=== PATIENT | female | born 1935 | race Caucasian/White ===

== ENCOUNTER 2018-01-13 17:53 | Emergency (ER) | payer OTHER ==
[~2018-01-13] VITALS: Ht 165.1 cm; Wt 77.1 kg
[~2018-01-13 17:53] MED LIST: ATOR10; ATOR10 PO; CALCIUM 600 +1 EAC9 PO; DIGO.125 PO; DONE10 PO; DULO60; DULO60 PO; ECHINACEA PO; ERGO400 PO; FISH1000 PO; FLUO10 PO; FOLI1 PO; Fish Oil500 M1 PO; Flomax0.4 MG PO; Fluoxetine HCl10 MG PO; MELA3 PO; MEMA10 PO; Macrodantin100 MG PO; Motion Sickness25 M1 PO; NEBI10; NEBI10 PO; NITR.4SL SL; NITR.4TPA TOP; Nitroglycerin0.4 MG SL; Percocet 5-3251 EACH PO; Super B-50 Com1 EACH PO; WARF2 PO; WARF4; WARF4 PO; XARELTO20 MG PO; Zofran Odt8 MG SL
[2018-01-13] MEDS ORDERED: DULO60 (18:23)
[2018-01-13] MEDS ORDERED: LEVO750 PO (20:31)
== END 2018-01-13 20:38 | disposition home or self-care (01) ==
LOC: ER 17:53
DX: J18.9 Pneumonia, unspecified organism (principal); I10 Essential (primary) hypertension; I48.91 Unspecified atrial fibrillation; G47.33 Obstructive sleep apnea (adult) (pediatric); I25.10 Atherosclerotic heart disease of native coronary artery without angina pectoris; G30.9 Alzheimer's disease, unspecified; F02.80 Dementia in other diseases classified elsewhere, unspecified severity, without behavioral disturbance, psychotic disturbance, mood disturbance, and anxiety; Z88.5 Allergy status to narcotic agent; Z88.8 Allergy status to other drugs, medicaments and biological substances; Z79.899 Other long term (current) drug therapy; Z98.890 Other specified postprocedural states; Z95.0 Presence of cardiac pacemaker; Z95.1 Presence of aortocoronary bypass graft; Z87.891 Personal history of nicotine dependence
CPT/HCPCS: 71046; 99283

== ENCOUNTER 2018-01-19 16:02 | Emergency (ER) | payer OTHER ==
[~2018-01-19] VITALS: Ht 165.1 cm; Wt 68.0 kg
[~2018-01-19 16:02] MED LIST changes: +LEVO750 PO
[2018-01-19] MEDS ORDERED: ALBU90OI INH (17:21)
[2018-01-19] MEDS ORDERED: Prednisone20 MG PO (17:21)
[2018-01-19] MEDS ORDERED: BENZ100A PO (17:21)
== END 2018-01-19 18:23 | disposition home or self-care (01) ==
LOC: ER 16:02
DX: J18.9 Pneumonia, unspecified organism (principal); Z88.5 Allergy status to narcotic agent; Z88.8 Allergy status to other drugs, medicaments and biological substances; Z79.899 Other long term (current) drug therapy; Z79.52 Long term (current) use of systemic steroids; Z79.2 Long term (current) use of antibiotics; I48.91 Unspecified atrial fibrillation; G30.9 Alzheimer's disease, unspecified; Z87.891 Personal history of nicotine dependence
CPT/HCPCS: 71046; 94640; 99284

== ENCOUNTER → 2020-07-09 | Outpatient (CLI) | payer OTHER ==
[~2020-07-09] MED LIST changes: +ALBU90OI INH; +BENZ100A PO; +Prednisone20 MG PO
== END | disposition home or self-care (01) ==
LOC: PLD 08:52 → LAB SHORT 08:52
DX: L57.0 Actinic keratosis (principal)
CPT/HCPCS: 88305

== ENCOUNTER 2021-09-22 10:57 | Emergency (ER) | payer OTHER ==
[~2021-09-22] VITALS: Ht 157.5 cm; Wt 72.0 kg
[~2021-09-22 10:57] MED LIST changes: +ANTACID PO; +LOPE2C PO; +MASOPHEN325 M1 PO; +METO25ER PO
[2021-09-22 11:54] LABS: BASOPHILS ABSOLUTE AUTO 0.06 K/mm3 (0.00-0.23); BASOPHILS PERCENT AUTO 0 % (0-2); EOSINOPHILS PERCENT AUTO 1 % (0-6); Hematocrit 29.3 % (33.0-51.0); Hemoglobin 8.3 g/dL (11.5-16.0); IMMATURE GRAN ABSOLUTE AUTO 0.08 K/mm3 (0.00-0.10); IMMATURE GRAN PERCENT AUTO 1 % (0-1); LYMPHOCYTES ABSOLUTE AUTO 2.47 K/mm3 (0.84-5.20); LYMPHOCYTES PERCENT AUTO 17 % (21-46); MONOCYTES ABSOLUTE AUTO 1.37 K/mm3 (0.16-1.47); MONOCYTES PERCENT AUTO 10 % (4-13); Mean Corpuscular HGB Conc 28.3 g/dL (31.5-36.5); Mean Corpuscular Volume 70 fL (80-100); Mean Platelet Volume 9.3 fL (9.1-12.4); NEUTROPHILS ABSOLUTE AUTO 10.31 K/mm3 (1.96-9.15); NEUTROPHILS PERCENT AUTO 71 % (41-73); Platelet Count 454 K/mm3 (150-400); RDW Coefficient Variation 19.5 % (11.7-14.2); RDW Standard Deviation 48.9 fL (35.1-46.3); Red Blood Cell Count 4.16 M/mm3 (3.80-5.20); White Blood Cell Count 14.49 K/mm3 (4.00-11.30)
[2021-09-22 12:29] LABS: Alanine Aminotransfer (ALT/SGP 14 U/L (12-78); Albumin/Globulin Ratio 0.6 (0.8-1.8); Alk Phos 90 U/L (50-136); Anion Gap 11 mmol/L (6-16); Aspartate Aminotrans (AST/SGOT 17 U/L (12-37); Bilirubin, Total 0.4 mg/dL (0.1-1.0); Blood Urea Nitrogen 18 mg/dL (8-24); Bun/Creatinine Ratio 20.5 (12.0-20.0); CO2, Blood 20 mmol/L (21-32); Calcium, Blood 9.2 mg/dL (8.5-10.1); Chloride, Blood 106 mmol/L (98-108); Creatinine, Blood 0.88 mg/dL (0.40-1.00); Globulin, Blood 5.2 g/dL (2.2-4.0); Glomerular Filtration Rate >60 (60-); Glucose, Blood 186 mg/dL (70-99); Potassium, Blood 3.5 mmol/L (3.5-5.5); Sodium, Blood 137 mmol/L (136-145); Total Protein, Blood 8.2 g/dL (6.4-8.2); Troponin I <0.015 ng/mL (0.000-0.040)
[2021-09-22 13:00] LABS: Adenovirus Not Detected (NOT DETECT); Bordetella pertussis Not Detected (NOT DETECT); Chlamydophila pneumoniae Not Detected (NOT DETECT); Coronavirus 229E Not Detected (NOT DETECT); Coronavirus HKU1 Not Detected (NOT DETECT); Coronavirus NL63 Not Detected (NOT DETECT); Coronavirus OC43 Not Detected (NOT DETECT); Human Metapneumovirus Not Detected (NOT DETECT); Human Rhinovirus/Enterovirus Detected (NOT DETECT); Influenza A/2009-H1 Not Detected (NOT DETECT); Influenza A/H1 Not Detected (NOT DETECT); Influenza A/H3 Not Detected (NOT DETECT); Influenza B Not Detected (NOT DETECT); Mycoplasma pneumoniae Not Detected (NOT DETECT); Parainfluenza Virus 1 Not Detected (NOT DETECT); Parainfluenza Virus 2 Not Detected (NOT DETECT); Parainfluenza Virus 3 Not Detected (NOT DETECT); Parainfluenza Virus 4 Not Detected (NOT DETECT); Respiratory Syncytial Virus Not Detected (NOT DETECT); SARS-Cov-2 (COVID-19), BioFire Not Detected (NOT DETECT)
[2021-09-22] MEDS ORDERED: PRED20 PO (14:45)
[2021-09-22] MEDS ORDERED: ALBU90OI INH (14:45)
[2021-09-22] MEDS ORDERED: DOXY100 PO (14:45)
== END 2021-09-22 15:18 | disposition home or self-care (01) ==
LOC: ER 10:57
PROVIDERS: Physician Assistant
DX: J44.1 Chronic obstructive pulmonary disease with (acute) exacerbation (principal); Z20.822 Contact with and (suspected) exposure to COVID-19; I10 Essential (primary) hypertension; I48.91 Unspecified atrial fibrillation; E78.5 Hyperlipidemia, unspecified; G47.33 Obstructive sleep apnea (adult) (pediatric); I25.10 Atherosclerotic heart disease of native coronary artery without angina pectoris; Z87.891 Personal history of nicotine dependence; Z88.5 Allergy status to narcotic agent; Z88.8 Allergy status to other drugs, medicaments and biological substances; Z79.899 Other long term (current) drug therapy
CPT/HCPCS: 0202U; 36415; 71045; 80053; 84484; 85025; 93005; 93010; 94640; 94644; 99285-25; A9270; J7512

== ENCOUNTER 2021-09-27 21:26 | Emergency (ER) | payer OTHER ==
[~2021-09-27] VITALS: Ht 165.1 cm; Wt 102.1 kg
[~2021-09-27 21:26] MED LIST changes: +DOXY100 PO; +PRED20 PO
== END 2021-09-28 01:31 | disposition home or self-care (01) ==
LOC: ER 21:26
DX: J20.6 Acute bronchitis due to rhinovirus (principal); I10 Essential (primary) hypertension; I25.10 Atherosclerotic heart disease of native coronary artery without angina pectoris; I48.91 Unspecified atrial fibrillation; E78.5 Hyperlipidemia, unspecified; J44.9 Chronic obstructive pulmonary disease, unspecified; G47.33 Obstructive sleep apnea (adult) (pediatric); Z88.5 Allergy status to narcotic agent; Z88.8 Allergy status to other drugs, medicaments and biological substances; Z79.899 Other long term (current) drug therapy; Z79.01 Long term (current) use of anticoagulants; Z87.891 Personal history of nicotine dependence
CPT/HCPCS: 71046; 94644; 99284-25

== ENCOUNTER → 2021-10-12 | Outpatient (CLI) | payer OTHER ==
[2021-10-13 10:54] LABS: Source, Urine Clean Catch
[2021-10-13 12:11] LABS: Bilirubin, Urine Neg (Neg); Blood, Urine 2+ (Neg); Color, Urine Yellow (P-Yellow); Glucose Qualitative, Urine Neg (Neg); Ketones, Urine Neg (Neg); Leukocyte Esterase, Urine 3+ (Neg); Nitrite, Urine Pos (Neg); Protein, Urine 2+ (Neg); Urobilinogen, Urine NORM (Normal)
[2021-10-13 12:40] LABS: Appearance, Urine Hazy (Clear)
[2021-10-13 12:41] LABS: White Blood Cells, Urine 25-50 /hpf (0-5)
[2021-10-13 12:42] LABS: Amorphous Light (0-Heavy); Bacteria Many /hpf; Mucus Light (0-Heavy); Squamous Epithelial Cells Few /hpf (Few)
== END | disposition home or self-care (01) ==
LOC: LAB SHORT 17:30
PROVIDERS: Internal Medicine
DX: N39.0 Urinary tract infection, site not specified (principal)
CPT/HCPCS: 81001

== ENCOUNTER → 2021-10-16 | Outpatient (CLI) | payer OTHER ==
[2021-10-16 18:30] LABS: BASOPHILS ABSOLUTE AUTO 0.05 K/mm3 (0.00-0.23); BASOPHILS PERCENT AUTO 0 % (0-2); EOSINOPHILS PERCENT AUTO 1 % (0-6); Hematocrit 27.6 % (33.0-51.0); IMMATURE GRAN ABSOLUTE AUTO 0.69 K/mm3 (0.00-0.10); IMMATURE GRAN PERCENT AUTO 5 % (0-1); LYMPHOCYTES ABSOLUTE AUTO 4.26 K/mm3 (0.84-5.20); LYMPHOCYTES PERCENT AUTO 28 % (21-46); MONOCYTES ABSOLUTE AUTO 1.14 K/mm3 (0.16-1.47); MONOCYTES PERCENT AUTO 8 % (4-13); Mean Corpuscular HGB 20.2 pg (26.0-34.0); Mean Corpuscular Volume 70 fL (80-100); NEUTROPHILS ABSOLUTE AUTO 8.91 K/mm3 (1.96-9.15); NEUTROPHILS PERCENT AUTO 59 % (41-73); NRBC ABSOLUTE 0.02 K/mm3 (0.00-0.02); NRBC Auto 0.1 /100 WBC (0.0-0.2); Platelet Count 631 K/mm3 (150-400); RDW Coefficient Variation 21.2 % (11.7-14.2); Red Blood Cell Count 3.96 M/mm3 (3.80-5.20); White Blood Cell Count 15.15 K/mm3 (4.00-11.30)
[2021-10-16 18:50] LABS: Anion Gap 12 mmol/L (6-16); Blood Urea Nitrogen 13 mg/dL (8-24); Bun/Creatinine Ratio 9.4 (12.0-20.0); CO2, Blood 29 mmol/L (21-32); Calcium, Blood 8.6 mg/dL (8.5-10.1); Chloride, Blood 100 mmol/L (98-108); Creatinine, Blood 1.39 mg/dL (0.40-1.00); Glomerular Filtration Rate 36 (60-); Glucose, Blood 98 mg/dL (70-99); Potassium, Blood 3.1 mmol/L (3.5-5.5); Sodium, Blood 141 mmol/L (136-145)
[2021-10-16 18:51] LABS: Troponin I <0.017 ng/mL (0.000-0.040)
== END | disposition home or self-care (01) ==
LOC: LAB SHORT 18:26
PROVIDERS: Physician Assistant Surgical
DX: R55 Syncope and collapse (principal)
CPT/HCPCS: 80048; 84484; 85025; 85379

== ENCOUNTER 2022-06-28 14:17 | Inpatient (IN) | payer OTHER ==
[~2022-06-28] VITALS: Ht 165.1 cm; Wt 91.0 kg
[2022-06-28] MEDS ORDERED: FERSU300 (14:55)
[2022-06-28] MEDS ORDERED: GUAI200 (14:56)
[2022-06-28] MEDS ORDERED: MIRALAX17 GM (14:56)
[2022-06-28] MEDS ORDERED: ZINC OXIDE57 GM TOP (14:57)
[2022-06-28] MEDS ORDERED: QUET25 (14:57)
[2022-06-28] MEDS ORDERED: SENNA LAXATIVE8.6 MG (14:58)
[2022-06-28] MEDS ORDERED: VITAMIN D3-ALO1 EACH (14:58)
[2022-06-28] MEDS ORDERED: Vitamin C100 M1 (14:58)
[2022-06-28 15:46] LABS: Albumin, Blood 3.5 g/dL (3.4-5.0); Albumin/Globulin Ratio 0.8 (0.8-1.8); Bun/Creatinine Ratio 12.9 (12.0-20.0); Calcium, Blood 9.7 mg/dL (8.5-10.1); Creatinine, Blood 2.48 mg/dL (0.40-1.00); Globulin, Blood 4.6 g/dL (2.2-4.0); Total Protein, Blood 8.1 g/dL (6.4-8.2)
[2022-06-28 15:54] LABS: BASOPHILS ABSOLUTE AUTO 0.03 K/mm3 (0.00-0.23); BASOPHILS PERCENT AUTO 0 % (0-2); EOSINOPHILS PERCENT AUTO 0 % (0-6); Hematocrit 39.4 % (33.0-51.0); Hemoglobin 12.7 g/dL (11.5-16.0); IMMATURE GRAN ABSOLUTE AUTO 0.05 K/mm3 (0.00-0.10); IMMATURE GRAN PERCENT AUTO 0 % (0-1); LYMPHOCYTES ABSOLUTE AUTO 2.03 K/mm3 (0.84-5.20); LYMPHOCYTES PERCENT AUTO 14 % (21-46); MONOCYTES ABSOLUTE AUTO 1.32 K/mm3 (0.16-1.47); MONOCYTES PERCENT AUTO 9 % (4-13); Mean Corpuscular HGB 28.3 pg (26.0-34.0); Mean Corpuscular HGB Conc 32.2 g/dL (31.5-36.5); Mean Corpuscular Volume 88 fL (80-100); Mean Platelet Volume 9.9 fL (9.1-12.4); NEUTROPHILS ABSOLUTE AUTO 11.01 K/mm3 (1.96-9.15); NEUTROPHILS PERCENT AUTO 76 % (41-73); Platelet Count 277 K/mm3 (150-400); RDW Coefficient Variation 12.7 % (11.7-14.2); RDW Standard Deviation 40.7 fL (35.1-46.3); Red Blood Cell Count 4.48 M/mm3 (3.80-5.20); White Blood Cell Count 14.44 K/mm3 (4.00-11.30)
[2022-06-28 16:42] LABS: Influenza A, PCR NEGATIVE (NEGATIVE); Influenza B, PCR NEGATIVE (NEGATIVE); Resp Syncytial Virus, PCR NEGATIVE (NEGATIVE); SARS-Cov-2 (COVID-19) PCR, MMC NEGATIVE (NEGATIVE)
[2022-06-28 16:54] LABS: Source, Urine Straight Cath
[2022-06-28 17:04] LABS: Appearance, Urine Cloudy (Clear); Bilirubin, Urine Neg (Neg); Blood, Urine 3+ (Neg); Color, Urine Yellow (P-Yellow); Glucose Qualitative, Urine 1+ (Neg); Ketones, Urine 2+ (Neg); Leukocyte Esterase, Urine 3+ (Neg); Nitrite, Urine Neg (Neg); Protein, Urine 4+ (Neg); Specific Gravity, Urine 1.015 (1.003-1.022); Urobilinogen, Urine NORM (Normal); pH, Urine 6.5 (5.0-8.0)
[2022-06-28 17:10] LABS: Bacteria Many /hpf; Red Blood Cells, Urine 25-50 /hpf (0-2); Squamous Epithelial Cells Few /hpf (Few); White Blood Cells, Urine TNTC /hpf (0-5)
--- NOTE | 2022-06-28 21:54 | NUR ---
transfer report from [facility] GENETIC COORDINATOR on elderly PT with dementia hypertension CAD with pacemaker hx of UTI UA positive culture pending hx of ecoli strep b uti. Await admission
[2022-06-29 05:22] LABS: BASOPHILS ABSOLUTE AUTO 0.03 K/mm3 (0.00-0.23); BASOPHILS PERCENT AUTO 0 % (0-2); EOSINOPHILS ABSOLUTE AUTO 0.01 K/mm3 (0.00-0.68); EOSINOPHILS PERCENT AUTO 0 % (0-6); Hematocrit 38.7 % (33.0-51.0); Hemoglobin 12.4 g/dL (11.5-16.0); IMMATURE GRAN ABSOLUTE AUTO 0.05 K/mm3 (0.00-0.10); IMMATURE GRAN PERCENT AUTO 0 % (0-1); LYMPHOCYTES ABSOLUTE AUTO 2.38 K/mm3 (0.84-5.20); LYMPHOCYTES PERCENT AUTO 16 % (21-46); MONOCYTES PERCENT AUTO 12 % (4-13); Mean Corpuscular HGB 28.4 pg (26.0-34.0); Mean Corpuscular Volume 89 fL (80-100); Mean Platelet Volume 10.4 fL (9.1-12.4); NEUTROPHILS ABSOLUTE AUTO 10.45 K/mm3 (1.96-9.15); NEUTROPHILS PERCENT AUTO 72 % (41-73); Platelet Count 260 K/mm3 (150-400); RDW Coefficient Variation 12.8 % (11.7-14.2); Red Blood Cell Count 4.37 M/mm3 (3.80-5.20); White Blood Cell Count 14.62 K/mm3 (4.00-11.30)
[2022-06-29 05:46] LABS: Albumin, Blood 3.2 g/dL (3.4-5.0); Albumin/Globulin Ratio 0.7 (0.8-1.8); Bilirubin, Total 0.7 mg/dL (0.1-1.0); Bun/Creatinine Ratio 14.1 (12.0-20.0); Creatinine, Blood 2.27 mg/dL (0.40-1.00); Globulin, Blood 4.4 g/dL (2.2-4.0); Magnesium, Blood 2.1 mg/dL (1.6-2.4); Total Protein, Blood 7.6 g/dL (6.4-8.2)
--- NOTE | 2022-06-29 06:52 | NUR ---
Elderly Female with UTI admitted with DOROTHY dehydration &sheisincontient of large amts of urine. Sips water with hs meds bites applesauce. NS IVF x 1 l. Rocephin to tx UTI. PRN trandate for hypertension with helpful effect but PTb continues with elevated SBP. [facility]. REfused some lab wotk this AM. 1 BC OBTAINED.
--- NOTE | 2022-06-29 17:27 | NUR ---
PT AOX1 WITH CONFUSION DUE TO DEMENTIA. PT HAS BEEN COOPERATIVE OF ALL CARE. PT PLEASANT AND DENIES ANY PAIN AT THIS TIME. PT RESTING IN BED WITH BED ALARM ON. PT HAS HAD A HIGH BP STARTING WITH 181/119 THEN AM MEDS GIVEN. NEXT BP WAS 163/104 AND IV METOPROLOL WAS GIVEN PER EMAR. AT 1607 BP WAS 152/101. WILL CONTINUE TO MONITOR.
--- NOTE | 2022-06-30 05:37 | NUR ---
PT who was admitted with DOROTHY UTI HTN Afib Dementia is more alet pleasant & she continues to require prn rx to tx hypertension with diastolic BPs greater than 100 SBP into 170s. Mild helpful effect of IV trandate 10 mg effect lasting less than 4 hrs. PT has advanced dementia DTR is POA & PT is full code will make pallative care consult to verify PT family would want full code status. Day RN Yady expressed concern DTR not visiting because PT does not recognize her? Voids only 1 x this shift despite IVF NS at 125 ml hr ongoing .
[2022-06-30 07:46] LABS: BASOPHILS ABSOLUTE AUTO 0.03 K/mm3 (0.00-0.23); BASOPHILS PERCENT AUTO 0 % (0-2); EOSINOPHILS ABSOLUTE AUTO 0.01 K/mm3 (0.00-0.68); EOSINOPHILS PERCENT AUTO 0 % (0-6); Hemoglobin 11.6 g/dL (11.5-16.0); IMMATURE GRAN ABSOLUTE AUTO 0.07 K/mm3 (0.00-0.10); IMMATURE GRAN PERCENT AUTO 1 % (0-1); LYMPHOCYTES ABSOLUTE AUTO 1.49 K/mm3 (0.84-5.20); LYMPHOCYTES PERCENT AUTO 12 % (21-46); MONOCYTES ABSOLUTE AUTO 1.57 K/mm3 (0.16-1.47); MONOCYTES PERCENT AUTO 13 % (4-13); Mean Corpuscular HGB 28.5 pg (26.0-34.0); Mean Corpuscular HGB Conc 32.2 g/dL (31.5-36.5); Mean Corpuscular Volume 89 fL (80-100); Mean Platelet Volume 10.4 fL (9.1-12.4); NEUTROPHILS ABSOLUTE AUTO 8.92 K/mm3 (1.96-9.15); NEUTROPHILS PERCENT AUTO 74 % (41-73); Platelet Count 215 K/mm3 (150-400); RDW Coefficient Variation 12.8 % (11.7-14.2); RDW Standard Deviation 41.2 fL (35.1-46.3); Red Blood Cell Count 4.07 M/mm3 (3.80-5.20); White Blood Cell Count 12.09 K/mm3 (4.00-11.30)
[2022-06-30 07:56] LABS: Bun/Creatinine Ratio 15.1 (12.0-20.0); Calcium, Blood 8.5 mg/dL (8.5-10.1); Creatinine, Blood 2.45 mg/dL (0.40-1.00); Potassium, Blood 3.8 mmol/L (3.5-5.5)
--- NOTE | 2022-06-30 10:26 | NUR ---
NOTIFIED DR. BYRD BY PHONE THAT PT'S B/P IS STILL ELEVATED AT 155/110 AND THAT PT HAS BEEN HAVING PVC'S PER HOSPITAL RECEPTIONISTCONSTANTINE.
--- NOTE | 2022-06-30 13:46 | NUR ---
Pt resting in bed and is pleasantly confused. Pt is A&O to self only. Pt answers in only one to two word sentences. Pt denies pain and dyspnea at this time. No S/S of distress at this time. Called and spoke with Pt's daughter Anaya. Provided update and reviewed plan of care. Engaged in therapeutic discussion regarding Pt's wishes for code status. Daughter Anaya reports Pt's wishes are DNR. Anaya is agreeable to complete POLST over the phone. Discussed each section to be completed and educated on each option. POLST completed with PC RN Madhuri as witness via speaker phone. Spoke with Dr Dickey. Dr Dickey signs POLST. [facility] per V/O from Dr Dickey. Delivered copy of POLST to medical records. Original POLST hanging on Pt's whiteboard to return back to facility when Pt is D/C from hospital. Palliative Care will remain available.
--- NOTE | 2022-06-30 18:00 | NUR ---
SHIFT SUMMARY PT IS PLEASANTLY CONFUSED. PT UNABLE TO RECALL HER NAME OR BIRTHDATE. PT'S DAUGHTER STATES THIS IS BASELINE. PT'S BLOOD PRESSURE HAS REMAINED HIGH ALL DAY DESPITE MEDICATION INTERVENTIONS. DR BYRD CONSULTED ABOUT ELEVATED B/P. NOTICED PT'S BROW FURROWED AND TOUCHING FORHEAD. PT DENIED PAIN, HOWEVER, WHEN COOL WASH CLOTH WAS PLACE ON PT HEAD, PT STATED, "AWW THAT FEEELS NICE". PT GIVEN TYLENOL AND HER BROW IS NO LONGER FURROWED. PT INONTINENT. ABLE TO TAKE MEDS WHOLE WITH WATER. BED IN LOWEST POSITION AND CALL LIGHT IN REACH.
[2022-06-30 19:29] LABS: Bun/Creatinine Ratio 15.4 (12.0-20.0); Calcium, Blood 8.9 mg/dL (8.5-10.1); Creatinine, Blood 2.54 mg/dL (0.40-1.00); Potassium, Blood 4.1 mmol/L (3.5-5.5)
--- NOTE | 2022-07-01 00:29 | NUR ---
PATIENT HAS PLEASANT AFFECT. LAUGHING AND GIGGLING WHEN THIS RN ASKS QUESTIONS. NEW IV PLACED IN LEFT WRIST 20GAUGE. PATIENT TOLERATED WELL. IV FLUIDS INFUSING AT 125ML/HR NS. SHE TAKES HER MEDICATIONS WHOLE WITH WATER. PATIENT NEEDS ENCOURAGEMENT WHEN SHE IS EATING SHE EASILY GETS SIDE TRACKED. WILL REMAIN AVAILABLE FOR THIS PATIENT
[2022-07-01 06:41] LABS: BASOPHILS ABSOLUTE AUTO 0.02 K/mm3 (0.00-0.23); BASOPHILS PERCENT AUTO 0 % (0-2); EOSINOPHILS ABSOLUTE AUTO 0.01 K/mm3 (0.00-0.68); EOSINOPHILS PERCENT AUTO 0 % (0-6); Hematocrit 31.8 % (33.0-51.0); Hemoglobin 10.3 g/dL (11.5-16.0); IMMATURE GRAN ABSOLUTE AUTO 0.07 K/mm3 (0.00-0.10); IMMATURE GRAN PERCENT AUTO 1 % (0-1); LYMPHOCYTES ABSOLUTE AUTO 1.65 K/mm3 (0.84-5.20); LYMPHOCYTES PERCENT AUTO 15 % (21-46); MONOCYTES ABSOLUTE AUTO 1.42 K/mm3 (0.16-1.47); MONOCYTES PERCENT AUTO 13 % (4-13); Mean Corpuscular HGB 28.7 pg (26.0-34.0); Mean Corpuscular HGB Conc 32.4 g/dL (31.5-36.5); Mean Corpuscular Volume 89 fL (80-100); Mean Platelet Volume 10.9 fL (9.1-12.4); NEUTROPHILS ABSOLUTE AUTO 7.96 K/mm3 (1.96-9.15); NEUTROPHILS PERCENT AUTO 72 % (41-73); Platelet Count 218 K/mm3 (150-400); RDW Coefficient Variation 12.8 % (11.7-14.2); RDW Standard Deviation 41.9 fL (35.1-46.3); Red Blood Cell Count 3.59 M/mm3 (3.80-5.20); White Blood Cell Count 11.13 K/mm3 (4.00-11.30)
[2022-07-01 06:54] LABS: Bun/Creatinine Ratio 16.2 (12.0-20.0); Calcium, Blood 8.2 mg/dL (8.5-10.1); Creatinine, Blood 2.4 mg/dL (0.40-1.00)
--- NOTE | 2022-07-01 17:32 | NUR ---
SHIFT SUMMARY PT REMAINS PLEASANTLY CONFUSED AT BASELINE. PT VERY SLEEPY TODAY AND HAD DIFICULTY GETTING HER TO STAY AWAKE FOR MEALS. PT WAS ABLE TO DRINK A WHOLE ENSURE AND HER PUDDING. PT ENJOYS SWEET FOODS. PT WAS ABLE TO TAKE PILLS WHOLE WITH WATER FOR ME YESTERDAY BUT TODAY PT CHEWED HER PILLS DESPITE COMMADS TO SWOLLOW. GAVE PILLS WITH APPLESAUSE BUT PT STILL CHEWED HER MEDICATIONS. PT'S BLOOD PRESSURE REMAINED ELEVATED HOWEVER, LAST BP WAS 136/67. BED IN LOWEST POSITION AND CALL LIGHT IN REACH.
--- NOTE | 2022-07-02 06:11 | NUR ---
SHIFT SUMMARY PT DROSWY SLEEPS MOST OF THE SHIFT, AWAKES TO VERBAL STIMULI. TAKES MEDS WITH APPLESAUCE BUT CHEWS THEM DESPITE DIRECTION TO SWALLOW WHOLE. 2 PA MAX ASSIST WITH ATTENDS CHANGES, SHE DOES NOT ASSIST MUCH WITH TURNING IN BED. IVF INFUSING PER ORDERS. PT CONFUSED BUT PLESANT WITH CARE. NO ACUTE CHANGES OVERNIGHT.
[2022-07-02 08:02] LABS: Bun/Creatinine Ratio 18.2 (12.0-20.0); Calcium, Blood 8.2 mg/dL (8.5-10.1); Creatinine, Blood 2.03 mg/dL (0.40-1.00)
--- NOTE | 2022-07-02 18:57 | NUR ---
SHIFT SUMMARY PT CONFUSED. NOT EASILY RE-DIRECTED AT TIMES, IS PLEASANT. IS 2 PERSON MAX ASSIST FOR BRIEF CHANGES, INCONTINENT. STARTED BOWEL CARE WITH MIRALAX TODAY. LAST BM 3 DAYS AGO. HAS STARTED PULLING HER TELE OFF. POSSIBLE DC BACK TO THE [facility] TOMORROW.
--- NOTE | 2022-07-02 20:05 | NUR ---
SPOKE WITH EVENING HOSPITALIST AND INFORMED HIM OF PATIENTS ADVANCED ALZHEIMERS CONFUSION AND HER CONSTANTLY REMOVING HER TELEMETRY. REQUESTED DC OF TELE. PER HIS ORDER, A CHECK WITH THE SPECIAL EDUCATION SUPERVISOR WAS DONE, AND NO TACHY OR ELIF ARRHYTHMIAS NOTED OTHER THAN HER BASELINE OF AFIB/FLUTTER. WITH THIS ACCEPTABLE RESPONSE, TELEMETRY WAS DC'D. SPECIAL EDUCATION SUPERVISOR INFORMED
[2022-07-03 05:13] LABS: Calcium, Blood 8.8 mg/dL (8.5-10.1); Creatinine, Blood 1.95 mg/dL (0.40-1.00); Potassium, Blood 3.9 mmol/L (3.5-5.5)
--- NOTE | 2022-07-03 05:38 | NUR ---
PATIENT IS A VERY PLEASANTLY CONFUSED LADY WHO'S MEMORY CYCLES EVERY ONE OR TWO MINUTES. SHE WAS COOPERATIVE WITH CARE ALL NIGHT. 2 TYLENOL WERE GIVEN TO HER AROUND 0400 FOR LEFT SHOULDER PAIN. THIS RESOLVED QUICKLY, AND THE PATIENT WAS ABLE TO REST AFTER THAT. PERHAPS WE COULD GET SOMETHING MILD TO ASSIST HER TO SLEEP TONIGHT. SHE WAS AWAKE AND HALLLUCINATING, HAVING ANIMATED CONVERSATIONS WITH PEOPLE WHO WERE NOT IN THE ROOM,
[2022-07-03] MEDS ORDERED: AMLO10 PO (16:39)
== END 2022-07-03 17:40 | disposition hospice, home (50) | DRG 872 ==
LOC: ER 14:17 → ERHOLD 18:35 → MEDS 18:35
PROVIDERS: Emergency Medicine; Family Medicine; Nurse Practitioner Acute Care; ADMIT Internal Medicine
DX: A41.51 Sepsis due to Escherichia coli [E. coli] (principal); N17.9 Acute kidney failure, unspecified; N39.0 Urinary tract infection, site not specified; N18.4 Chronic kidney disease, stage 4 (severe); R65.20 Severe sepsis without septic shock; Z20.822 Contact with and (suspected) exposure to COVID-19; Z51.5 Encounter for palliative care; K59.00 Constipation, unspecified; Z66 Do not resuscitate; I48.91 Unspecified atrial fibrillation; E78.5 Hyperlipidemia, unspecified; I12.9 Hypertensive chronic kidney disease with stage 1 through stage 4 chronic kidney disease, or unspecified chronic kidney disease; G47.33 Obstructive sleep apnea (adult) (pediatric); G30.9 Alzheimer's disease, unspecified; E86.0 Dehydration; R11.2 Nausea with vomiting, unspecified; F02.80 Dementia in other diseases classified elsewhere, unspecified severity, without behavioral disturbance, psychotic disturbance, mood disturbance, and anxiety; I25.10 Atherosclerotic heart disease of native coronary artery without angina pectoris; F32.A Depression, unspecified; Z95.0 Presence of cardiac pacemaker; Z90.89 Acquired absence of other organs; Z98.890 Other specified postprocedural states; Z87.891 Personal history of nicotine dependence; Z88.5 Allergy status to narcotic agent; Z88.8 Allergy status to other drugs, medicaments and biological substances; Z79.01 Long term (current) use of anticoagulants; Z79.899 Other long term (current) drug therapy
CPT/HCPCS: 0241U; 29105; 36415; 51701; 76770; 80048; 80053; 81001; 82550; 82947; 83605; 83690; 83735; 85025; 87040; 87077; 87086; 87186; 94640; 94664; 94760; 94762; 96361-59; 96374-59; 97116; 97161; 97165; 97530; 99285-25; A9270; J0696; J1644; J7030

== ENCOUNTER → 2022-08-13 | Outpatient (CLI) | payer OTHER ==
[~2022-08-13] MED LIST changes: +AMLO10 PO; +FERSU300; +GUAI200; +MIRALAX17 GM; +QUET25; +SENNA LAXATIVE8.6 MG; +VITAMIN D3-ALO1 EACH; +Vitamin C100 M1; +ZINC OXIDE57 GM TOP
[2022-08-13 14:30] LABS: Source, Urine Straight Cath
[2022-08-13 15:51] LABS: Appearance, Urine Cloudy (Clear); Bilirubin, Urine Neg (Neg); Blood, Urine 1+ (Neg); Color, Urine Yellow (P-Yellow); Glucose Qualitative, Urine Neg (Neg); Ketones, Urine 1+ (Neg); Leukocyte Esterase, Urine 3+ (Neg); Nitrite, Urine Pos (Neg); Protein, Urine 2+ (Neg); Urobilinogen, Urine 1+ (Normal)
[2022-08-13 16:07] LABS: Bacteria Many /hpf; Granular Casts 0-2 /lpf (0); Hyaline Casts 0-2 /lpf (0-2); Red Blood Cells, Urine 50-100 /hpf (0-2); Squamous Epithelial Cells Many /hpf (Few); Transitional Epithelial Cells Few /hpf (0-Rare); White Blood Cells, Urine 25-50 /hpf (0-5)
[2022-08-13 16:08] LABS: Calcium Oxalate Crystals Few /hpf; RBC Cast 0-2 /lpf (0)
== END ==
LOC: LAB SHORT 14:10 → LAB 14:10
PROVIDERS: Internal Medicine
DX: N39.0 Urinary tract infection, site not specified (principal)
CPT/HCPCS: 81001; 87077; 87086; 87186